=== PATIENT | male | born 1950 | race Caucasian/White ===

== ENCOUNTER → 2021-10-10 | Outpatient (REF) | payer MEDICARE | LOC: M WUC 19:41 | PROVIDERS: ATTEND Physician Assistant | DX: N39.0 Urinary tract infection, site not specified (principal) ==

== ENCOUNTER → 2022-03-01 | Outpatient (CLI) | payer MEDICARE | LOC: M WUC 09:52 | PROVIDERS: ATTEND Nurse Practitioner Family | DX: M79.642 Pain in left hand (principal); M25.532 Pain in left wrist; M19.042 Primary osteoarthritis, left hand; M25.832 Other specified joint disorders, left wrist ==

== ENCOUNTER 2024-07-19 19:19 | Emergency (ER) | payer MEDICARE ==
[~2024-07-19] VITALS: Ht 167.6 cm; Wt 116.8 kg
[~2024-07-19 19:19] MED LIST: ATEN50TA2 PO; CHOL1CAP10 PO; FINA5TAB2 PO; FLOM0.4C39 PO; HYDR-3490 PO; LEVO150T7 PO; LOSA25TA13 PO; METF-838 PO; SIMV20TA22 PO
[2024-07-19 20:04] LABS: BASO # 0.1 10^3/uL (0.0-0.2); BASO % 0.6 % (0.0-1.0); EOS % 0.4 % (0.0-3.0); HEMATOCRIT 36.7 % (42.0-52.0); HEMOGLOBIN 12.9 g/dl (13.5-17.5); LYMPH # 0.6 10^3/uL (1.5-5.0); LYMPH % 7.2 % (24.0-44.0); MEAN CORPUSCULAR HEMOGLOBIN 31.3 pg (27.0-33.0); MEAN CORPUSCULAR HGB CONC 35.1 g/dl (32.0-36.5); MEAN CORPUSCULAR VOLUME 89.1 fl (80.0-96.0); MONO # 1.4 10^3/uL (0.0-0.8); MONO % 16.5 % (2.0-8.0); NEUTROPHILS # 6.4 10^3/uL (1.5-8.5); NEUTROPHILS % 74.5 % (36.0-66.0); PLATELET COUNT, AUTOMATED 175 10^3/uL (150-450); RED BLOOD COUNT 4.12 10^6/uL (4.30-6.10); WHITE BLOOD COUNT 8.5 10^3/uL (4.0-10.0)
[2024-07-19 20:25] LABS: CK-MB VALUE MASS < 1.0 NG/ML (<3.6)
[2024-07-19 20:28] LABS: BLOOD UREA NITROGEN 16 MG/DL (9-23); CARBON DIOXIDE LEVEL 21 MMOL/L (20-31); CHLORIDE LEVEL 96 MMOL/L (98-107); CPK CREATINE PHOSPHOKINASE 98 U/L (46-171); GLOMERULAR FILTRATION RATE > 60.0 (>42); GLUCOSE, FASTING 126 MG/DL (74-106); MB/CK RELATIVE INDEX 1.02 (< OR =4); POTASSIUM SERUM 3.7 MMOL/L (3.5-5.1); SODIUM LEVEL 129 MMOL/L (136-145)
[2024-07-19] MEDS: NS 500 ML IV ONE (20:39)
[2024-07-19] MEDS: ACETAMINOPHEN *IV* 1,000 MG in IV 1 EA IV ONE (20:39)
[2024-07-19 21:30] LABS: CK-MB VALUE MASS < 1.0 NG/ML (<3.6)
[2024-07-19 21:32] LABS: CPK CREATINE PHOSPHOKINASE 94 U/L (46-171); MB/CK RELATIVE INDEX 1.06 (< OR =4)
[2024-07-19 23:45] VITALS: O2SAT 95
[2024-07-19] MEDS ORDERED: NIRM1TAB14 PO (23:50)
[2024-07-19 23:57] VITALS: BP 157/70; TEMP 98.4; O2SAT 95
== END 2024-07-20 00:07 | disposition home or self-care (01) ==
LOC: M ED 19:19 → EDBD 19:19 → M ED 07-20 00:07
DX: U07.1 COVID-19 (principal); I51.7 Cardiomegaly; I44.4 Left anterior fascicular block; I45.10 Unspecified right bundle-branch block; J90 Pleural effusion, not elsewhere classified; E78.5 Hyperlipidemia, unspecified; N40.0 Benign prostatic hyperplasia without lower urinary tract symptoms; E55.9 Vitamin D deficiency, unspecified; I10 Essential (primary) hypertension; E11.9 Type 2 diabetes mellitus without complications; Z88.0 Allergy status to penicillin; Z91.013 Allergy to seafood; Z79.4 Long term (current) use of insulin; Z79.899 Other long term (current) drug therapy
CPT/HCPCS: 71045; 80048; 82550; 82553; 84484; 85025; 87486; 87581; 87633; 87798; 93005; 96361; 96374; 99284; J0131

== ENCOUNTER 2025-11-22 22:39 | Inpatient (IN) | payer MEDICARE ==
[~2025-11-22] VITALS: Ht 170.2 cm; Wt 115.9 kg
[~2025-11-22 22:39] MED LIST changes: -FLOM0.4C39 PO; +NIRM1TAB16 PO; +TAMS-18 PO
[2025-11-23 03:02] LABS: BASO # 0.1 10^3/uL (0.0-0.2); BASO % 0.3 % (0.0-1.0); EOS # 0.1 10^3/uL (0.0-0.5); EOS % 0.4 % (0.0-3.0); LYMPH # 1.4 10^3/uL (1.5-5.0); LYMPH % 9.7 % (24.0-44.0); MONO # 1.6 10^3/uL (0.0-0.8); MONO % 11.1 % (2.0-8.0); NEUTROPHILS # 11.3 10^3/uL (1.5-8.5); NEUTROPHILS % 77.8 % (36.0-66.0); PLATELET COUNT, AUTOMATED 231 10^3/uL (150-450)
[2025-11-23] MEDS: KETOROLAC 30 MG/ML 1 ML VIAL IV ONE (03:07)
[2025-11-23 03:27] LABS: ALT/SGPT 25.0 U/L (7.0-40); AST/SGOT 31.0 U/L (<34); C REACTIVE PROTEIN QUANTITATIV 3.21 MG/DL (<1.0); CALCIUM LEVEL 9.3 MG/DL (8.3-10.6); CARBON DIOXIDE LEVEL 22.0 MMOL/L (20-31); CHLORIDE LEVEL 92.0 MMOL/L (98-107); CPK CREATINE PHOSPHOKINASE 127.0 U/L (46-171); CREATININE FOR GFR 1.0 MG/DL (0.70-1.30); GLOMERULAR FILTRATION RATE 77.5 (>42); POTASSIUM SERUM 3.6 MMOL/L (3.5-5.1); SODIUM LEVEL 128.0 MMOL/L (136-145)
[2025-11-23] MEDS ORDERED: CLINDAMYCIN 600 MG in IV 1 EA IV ONE (05:00)
[2025-11-23] MEDS ORDERED: VANCOMYCIN 1000MG/20ML VIAL IP ONE (05:00)
[2025-11-23] MEDS ORDERED: LIDOCAINE 1% MDV 20 ML VIAL As Ordered ONE (05:56)
[2025-11-23] MEDS: VANCOMYCIN HCL 1,000 MG, VIAL MATE ADAPTER 1 EACH in NS 250 ML IV ONE (06:10)
[2025-11-23] MEDS: ACETAMINOPHEN *IV* 1,000 MG in IV 1 EA IV ONE (06:22)
[2025-11-23 06:24] LABS: SOURCE, BODY FLUID RT WRIST
[2025-11-23] MEDS: LIDOCAINE 1% SDV 30 ML VIAL SC SCH (07:16)
[2025-11-23] MEDS ORDERED: MOM 30 ML SUSPENSION UDC PO PRN (08:20)
[2025-11-23] MEDS ORDERED: ACETAMINOPHEN 325 MG TAB PO PRN (08:20)
[2025-11-23] MEDS ORDERED: MAALOX 30 ML SUSP *UDC PO PRN (08:20)
[2025-11-23] MEDS: CLINDAMYCIN 600 MG in IV 1 EA IV ONE (08:43)
[2025-11-23] MEDS ORDERED: MELO15TA28 PO (09:02)
[2025-11-23] MEDS ORDERED: XALA0.007 OU (09:02)
[2025-11-23] MEDS ORDERED: METF-877 PO (09:02)
[2025-11-23] MEDS ORDERED: TAMS1CAP17 PO (09:02)
[2025-11-23] MEDS ORDERED: HOME MED LIST COMPLETE! XX SCH (09:05)
[2025-11-23 09:16] LABS: BASO # 0.0 10^3/uL (0.0-0.2); BASO % 0.2 % (0.0-1.0); EOS # 0.0 10^3/uL (0.0-0.5); EOS % 0.1 % (0.0-3.0); LYMPH # 1.3 10^3/uL (1.5-5.0); LYMPH % 8.6 % (24.0-44.0); MONO # 1.2 10^3/uL (0.0-0.8); MONO % 7.5 % (2.0-8.0); NEUTROPHILS # 12.6 10^3/uL (1.5-8.5); NEUTROPHILS % 82.7 % (36.0-66.0); PLATELET COUNT, AUTOMATED 208 10^3/uL (150-450)
[2025-11-23 09:30] LABS: KETONE, URINE AUTO RFX TRACE mg/dL (NEGATIVE); LEUKOCYTE ESTERASE UR AUTO RFX NEGATIVE (NEGATIVE); MUCUS, URINE RFX SMALL (NEGATIVE); NITRITE, URINE AUTO RFX NEGATIVE (NEGATIVE); RBC, URINE AUTO RFX 2 /HPF (0-3); SQUAM EPITHELIAL CELL UR AURFX 0 /HPF (0-6); WBC, URINE AUTO RFX 1 /HPF (0-3)
[2025-11-23 09:41] LABS: C REACTIVE PROTEIN QUANTITATIV 5.74 MG/DL (<1.0); CALCIUM LEVEL 8.3 MG/DL (8.3-10.6); CARBON DIOXIDE LEVEL 22.0 MMOL/L (20-31); CHLORIDE LEVEL 95.0 MMOL/L (98-107); CREATININE FOR GFR 0.95 MG/DL (0.70-1.30); GLOMERULAR FILTRATION RATE 82.4 (>42); MAGNESIUM LEVEL 1.2 MG/DL (1.8-2.4); POTASSIUM SERUM 3.5 MMOL/L (3.5-5.1); SODIUM LEVEL 129.0 MMOL/L (136-145)
[2025-11-23] MEDS: HEPARIN SOD 5000 UNITS/ML 1 ML VIAL/SYRINGE SQ SCH (09:57)
[2025-11-23] MEDS: TAMSULOSIN 0.4 MG CAP PO SCH (09:57)
[2025-11-23] MEDS: FINASTERIDE 5 MG TAB PO SCH (09:58)
[2025-11-23] MEDS: LOSARTAN 25 MG TAB PO ONE (10:01)
[2025-11-23] MEDS: PANTOPRAZOLE 40MG VIAL IV SCH (10:01)
[2025-11-23] MEDS: DOCUSATE SODIUM 100 MG CAPSULE PO SCH (10:01)
[2025-11-23] MEDS: MELOXICAM 7.5 MG TAB PO SCH (10:05)
[2025-11-23] MEDS: LEVOTHYROXINE 150 MCG TABLET (0.15 MG) PO SCH (12:41)
[2025-11-23] MEDS ORDERED: PROHANCE 279.3MG/ML 5ML VIAL As Ordered ONE (13:04)
[2025-11-23] MEDS ORDERED: PROHANCE 279.3MG/ML 15ML VIAL As Ordered ONE (13:05)
[2025-11-23] MEDS: predniSONE 20 MG TAB PO ONE (13:57)
[2025-11-23] MEDS: MAG SULF 1GM/100ML (MAG RUN) 1 GM in IV 1 EA IV SCH (13:57)
[2025-11-23] MEDS: hydrALAZINE 20 MG/ML 1 ML VIAL IV PRN (14:33)
[2025-11-23] MEDS: MORPHINE 2 MG/ML 1 ML VIAL IV PRN (14:33)
[2025-11-23] MEDS ORDERED: GLUCOSE 4 GM CHEW PO PRN (15:50)
[2025-11-23] MEDS ORDERED: GLUCAGON INJ 1 MG VIAL SC PRN (15:50)
[2025-11-23] MEDS ORDERED: DEXTROSE 50% 50 ML SYRINGE IV PRN (15:50)
[2025-11-23] MEDS: INSULIN LISPRO (NovoLOG) PER UNIT SC SCH ×2 (18:55→22:36)
[2025-11-23] MEDS: SIMVASTATIN 20 MG TAB PO SCH (22:34)
[2025-11-23] MEDS: LATANOPROST 0.005% OPHTH SOLN 2.5 ML OU SCH (23:50)
[2025-11-24 08:17] LABS: BASO # 0.0 10^3/uL (0.0-0.2); BASO % 0.2 % (0.0-1.0); EOS # 0.1 10^3/uL (0.0-0.5); EOS % 0.5 % (0.0-3.0); LYMPH # 2.0 10^3/uL (1.5-5.0); LYMPH % 16.8 % (24.0-44.0); MONO # 1.2 10^3/uL (0.0-0.8); MONO % 9.9 % (2.0-8.0); NEUTROPHILS # 8.7 10^3/uL (1.5-8.5); NEUTROPHILS % 72.0 % (36.0-66.0); PLATELET COUNT, AUTOMATED 231 10^3/uL (150-450)
[2025-11-24] MEDS: LOSARTAN 25 MG TAB PO SCH (08:28)
[2025-11-24 08:46] LABS: C REACTIVE PROTEIN QUANTITATIV 11.98 MG/DL (<1.0)
[2025-11-24] MEDS: predniSONE 20 MG TAB PO SCH (09:04)
[2025-11-24] MEDS: amLODIPine 5 MG TAB PO ONE (09:04)
[2025-11-24 09:10] LABS: CALCIUM LEVEL 8.6 MG/DL (8.3-10.6); CARBON DIOXIDE LEVEL 25.0 MMOL/L (20-31); CHLORIDE LEVEL 94.0 MMOL/L (98-107); CREATININE FOR GFR 1.09 MG/DL (0.70-1.30); GLOMERULAR FILTRATION RATE 69.9 (>42); POTASSIUM SERUM 3.5 MMOL/L (3.5-5.1); SODIUM LEVEL 128.0 MMOL/L (136-145)
[2025-11-24 09:32] LABS: MAGNESIUM LEVEL 2.1 MG/DL (1.8-2.4)
[2025-11-24] MEDS: NS (Normal Saline) 0.9% 1,000 ML IV SCH (09:50)
[2025-11-24 10:22] LABS: FREE T4 1.65 NG/DL (0.89-1.76)
[2025-11-24 10:30] LABS: OSMOLALITY SERUM 273.0 MOSM/KG (280-301)
[2025-11-24 13:42] LABS: CALCIUM LEVEL 8.4 MG/DL (8.3-10.6); CARBON DIOXIDE LEVEL 26.0 MMOL/L (20-31); CHLORIDE LEVEL 93.0 MMOL/L (98-107); CREATININE FOR GFR 1.05 MG/DL (0.70-1.30); GLOMERULAR FILTRATION RATE 73.1 (>42); POTASSIUM SERUM 3.4 MMOL/L (3.5-5.1); SODIUM LEVEL 128.0 MMOL/L (136-145)
[2025-11-24] MEDS: POTASSIUM CHLORIDE 10MEQ SR TABLET PO ONE (14:33)
[2025-11-24 14:53] VITALS: BP 164/71; TEMP 97.7; O2SAT 97
[2025-11-24 15:39] VITALS: BP 151/66; TEMP 98; O2SAT 93
[2025-11-24 16:38] LABS: CALCIUM LEVEL 8.4 MG/DL (8.3-10.6); CARBON DIOXIDE LEVEL 24.0 MMOL/L (20-31); CHLORIDE LEVEL 93.0 MMOL/L (98-107); CREATININE FOR GFR 1.16 MG/DL (0.70-1.30); GLOMERULAR FILTRATION RATE 64.9 (>42); POTASSIUM SERUM 4.0 MMOL/L (3.5-5.1); SODIUM LEVEL 128.0 MMOL/L (136-145)
[2025-11-24 19:25] VITALS: BP 146/92; TEMP 97.6; O2SAT 96
[2025-11-24 20:05] VITALS: BP 146/92
[2025-11-24] MEDS: amLODIPine 5 MG TAB PO SCH (20:05)
[2025-11-24 20:37] LABS: POTASSIUM RANDOM URINE 9.4 MMOL/L; SODIUM,RANDOM URINE 22 MMOL/L
[2025-11-24 20:48] LABS: CHLORIDE,RANDOM URINE < 20 MMOL/L
[2025-11-24 23:31] VITALS: BP 168/72; TEMP 97.4; O2SAT 93
[2025-11-25 03:33] VITALS: BP 141/92; TEMP 98.1; O2SAT 96
[2025-11-25 06:12] LABS: BASO # 0.0 10^3/uL (0.0-0.2); BASO % 0.2 % (0.0-1.0); EOS # 0.0 10^3/uL (0.0-0.5); EOS % 0.3 % (0.0-3.0); LYMPH # 1.9 10^3/uL (1.5-5.0); LYMPH % 17.1 % (24.0-44.0); MONO # 1.1 10^3/uL (0.0-0.8); MONO % 10.0 % (2.0-8.0); NEUTROPHILS # 8.1 10^3/uL (1.5-8.5); NEUTROPHILS % 71.7 % (36.0-66.0); PLATELET COUNT, AUTOMATED 259 10^3/uL (150-450)
[2025-11-25 06:36] LABS: C REACTIVE PROTEIN QUANTITATIV 5.18 MG/DL (<1.0); CALCIUM LEVEL 8.9 MG/DL (8.3-10.6); CARBON DIOXIDE LEVEL 23.0 MMOL/L (20-31); CHLORIDE LEVEL 97.0 MMOL/L (98-107); CREATININE FOR GFR 1.1 MG/DL (0.70-1.30); GLOMERULAR FILTRATION RATE 69.1 (>42); MAGNESIUM LEVEL 2.0 MG/DL (1.8-2.4); POTASSIUM SERUM 4.1 MMOL/L (3.5-5.1); SODIUM LEVEL 131.0 MMOL/L (136-145)
[2025-11-25 07:31] VITALS: BP 172/80; TEMP 98.6; O2SAT 95
[2025-11-25] MEDS ORDERED: PANT40TA29 PO (10:24)
[2025-11-25] MEDS ORDERED: MIRA3350 PO (10:24)
[2025-11-25] MEDS ORDERED: OXYC-517 PO (10:24)
[2025-11-25] MEDS ORDERED: PRED10TA2 PO (10:24)
[2025-11-25] MEDS ORDERED: AMLO1TAB24 PO (10:24)
[2025-11-25 10:36] VITALS: BP 127/73
[2025-11-25] MEDS: FLUZONE HIGH DOSE (65+) 0.5 ML SYRINGE (25-26) IM.IMMUN ONE (10:59)
[2025-11-25 11:45] VITALS: BP 125/73; TEMP 98.4; O2SAT 95
[2025-11-29 06:38] LABS: LYME TOTAL ANTIBODY CIA <= 0.90 Index (<=0.90)
== END 2025-11-25 13:14 | disposition home or self-care (01) | DRG 554 ==
LOC: M ED 22:39 → M ED INP 11-24 09:01 → M PCU 11-24 13:43
PROVIDERS: ADMIT Internal Medicine; ATTEND Internal Medicine
PROC: 0R9N3ZX Drainage of Right Wrist Joint, Percutaneous Approach, Diagnostic (ICD-10-PCS; principal; 2025-11-23)
DX: M06.4 Inflammatory polyarthropathy (principal); E87.1 Hypo-osmolality and hyponatremia; I10 Essential (primary) hypertension; G47.33 Obstructive sleep apnea (adult) (pediatric); E11.9 Type 2 diabetes mellitus without complications; N40.0 Benign prostatic hyperplasia without lower urinary tract symptoms; F17.210 Nicotine dependence, cigarettes, uncomplicated; Z79.890 Hormone replacement therapy; Z79.899 Other long term (current) drug therapy; Z88.0 Allergy status to penicillin; Z91.013 Allergy to seafood; Z88.6 Allergy status to analgesic agent; E83.42 Hypomagnesemia; E78.5 Hyperlipidemia, unspecified; E03.9 Hypothyroidism, unspecified; I16.0 Hypertensive urgency